=== PATIENT | male | born 2000 | race Caucasian/White ===

== ENCOUNTER 2022-12-23 18:57 | Emergency (ER) | payer BC ==
[2022-12-23 19:45] LABS: Bilirubin Neg (Negative); Blood, Urine Negative (Negative); Clarity Cloudy (Clear); Glucose, Urine (Dipstick) Normal (Negative); Ketone, Urine 5 mg/dL (Negative); Leukocyte 25 (Negative); Nitrite Negative (Negative); Protein, Urine (Dipstick) 30 mg/dl (Neg-Trace); Specific Gravity, Urine 1.025 (1.005-1.030)
[2022-12-23 19:53] LABS: Bacteria/HPF Rare-Few HPF (None Seen); Mucous/LPF 3+ LPF (<2+); Squamous Epithelial 0-3 HPF (0-3)
[2022-12-24 16:37] LABS: Chlam.trachomatis by PCR,Urine Not Detected (NotDetected); GC N.gonorrhoeae PCR,UrineVOID Not Detected (NotDetected)
== END 2022-12-23 21:35 | disposition home or self-care (01) ==
LOC: CSHERS 18:57
DX: N45.3 Epididymo-orchitis (principal); F17.290 Nicotine dependence, other tobacco product, uncomplicated
CPT/HCPCS: 76870; 81003; 81015; 87491; 87591; 93976

== ENCOUNTER 2024-06-05 20:37 | Emergency (ER) | payer BC | END 2024-06-05 21:07 | disposition home or self-care (01) | LOC: CSHERS 20:37 | DX: S10.91XA Abrasion of unspecified part of neck, initial encounter (principal); I88.9 Nonspecific lymphadenitis, unspecified; F17.290 Nicotine dependence, other tobacco product, uncomplicated; W55.03XA Scratched by cat, initial encounter | CPT/HCPCS: 99283 ==